=== PATIENT | female | born 1945 | race Caucasian/White ===

== ENCOUNTER 2018-05-12 15:17 | Outpatient (CLI) | payer MEDICARE, BC | END 2018-05-12 15:18 | disposition home or self-care (01) | LOC: BICMAMMO 15:17 | PROVIDERS: ATTEND Internal Medicine Rheumatology | DX: M81.0 Age-related osteoporosis without current pathological fracture (principal); M85.851 Other specified disorders of bone density and structure, right thigh; M85.852 Other specified disorders of bone density and structure, left thigh | CPT/HCPCS: 77080 ==

== ENCOUNTER 2018-11-13 14:34 | Outpatient (CLI) | payer MEDICARE, BC ==
--- NOTE | 2018-11-18 12:23 | MMO ---
BILATERAL DIGITAL SCREENING MAMMOGRAMS: Date: 11/13/18 HISTORY: 73-year-old female presents for digital screening mammogram. COMPARISON: 08/23/17, 04/20/16, 03/03/15. FINDINGS: This patient's mammogram was interpreted with the assistance of computer-aided detection. Scattered fibroglandular changes are noted. Stable typically benign calcifications. No direct or eduin rect evidence of malignancy. IMPRESSION: BIRADS 2: Benign Finding(s) Continue routine screening. POS: JOS[facility]UEL
== END 2018-11-13 14:35 | disposition home or self-care (01) ==
LOC: SCSMAMMO 14:34
PROVIDERS: ATTEND Family Medicine
DX: Z12.31 Encounter for screening mammogram for malignant neoplasm of breast (principal)
CPT/HCPCS: 77067

== ENCOUNTER 2019-02-16 14:05 | Outpatient (CLI) | payer MEDICARE, BC ==
--- NOTE | 2019-02-16 14:37 | RAD ---
AP VIEW ABDOMEN: HISTORY: Renal calculi. FINDINGS: AP view abdomen demonstrates extensive lumbar spine fusion surgical hardware. A small, radiopaque calculus is seen in the midpole of the right kidney. This measures approximately 2-3 mm in diameter. It appears to have been present on the previous comparison exam. No newly developed evidence of renal calculi seen. IMPRESSION: Small midpole right renal calculus. Transcribed Date/Time: 02/16/2019 2:40 PM
== END 2019-02-16 14:06 | disposition home or self-care (01) ==
LOC: RAD 14:05
PROVIDERS: ATTEND Urology
DX: N20.0 Calculus of kidney (principal)
CPT/HCPCS: 74018

== ENCOUNTER 2020-03-31 10:36 | Outpatient (CLI) | payer MEDICARE, BC ==
--- NOTE | 2020-03-31 12:59 | MMO ---
Bilateral MAMMO Bilat Screen [facility]. CLINICAL HISTORY: Patient is 75 years old and is seen for screening. The patient has no family history of breast cancer. The patient has no personal history of cancer. VIEWS: The views performed were: bilateral craniocaudal with tomosynthesis and bilateral mediolateral oblique with tomosynthesis. FILMS COMPARED: The present examination has been compared to prior imaging studies performed at [facility] on 11/13/2018, and at Outside Location on 03/03/2015, 04/20/2016 and 08/23/2017. This study has been interpreted with the assistance of computer-aided detection. MAMMOGRAM FINDINGS: There are scattered fibroglandular densities. There is an asymmetry measuring 5 millimeters seen in the middle upper-outer region of the right breast. In the left breast, there are no suspicious masses, calcifications or areas of architectural distortion. IMPRESSION: ASYMMETRY IN THE RIGHT BREAST REQUIRES ADDITIONAL EVALUATION. ADDITIONAL IMAGING. Diagnostic mammogram and focused ultrasound recommended. THE RESULTS OF THIS EXAM WERE SENT TO THE PATIENT. ACR BI-RADS Category 0 - Incomplete: Need additional imaging evaluation. [facility] will notify the patient of the need for additional imaging services. MAMMOGRAPHY NOTE: 1. A negative mammogram report should not delay a biopsy if a dominant of clinically suspicious mass is present. 2. Approximately 10% to 15% of breast cancers are not detected by mammography. 3. Adenosis and dense breasts may obscure an underlying neoplasm. Reported by: RACHELLE RG MD Electonically Signed: [id number]
== END 2020-03-31 10:37 | disposition home or self-care (01) ==
LOC: BICMAMMO 10:36
PROVIDERS: ATTEND Family Medicine
DX: Z12.31 Encounter for screening mammogram for malignant neoplasm of breast (principal); N64.89 Other specified disorders of breast
CPT/HCPCS: 77063; 77067

== ENCOUNTER 2020-04-05 09:55 | Outpatient (CLI) | payer MEDICARE, BC ==
--- NOTE | 2020-04-05 10:35 | MMO ---
Right Breast MAMMO Unilat Diag [facility]DI [facility]. CLINICAL HISTORY: Patient is 75 years old and is seen for diagnostic exam. The patient has no family history of breast cancer. The patient has no personal history of cancer. VIEWS: The views performed were: right craniocaudal spot compression with tomosynthesis; right mediolateral oblique spot compression with tomosynthesis; and right mediolateral with tomosynthesis. FILMS COMPARED: The present examination has been compared to prior imaging studies performed at [facility] on 11/13/2018, 03/31/2020 and 04/05/2020, and at Outside Location on 08/23/2017. This study has been interpreted with the assistance of computer-aided detection. MAMMOGRAM FINDINGS: There are scattered fibroglandular densities. The asymmetry seen at screening mammography does not persist at additional imaging, compatible with superimposed tissue. There are no suspicious masses, suspicious calcifications, or new areas of architectural distortion. IMPRESSION: THERE IS NO MAMMOGRAPHIC EVIDENCE OF MALIGNANCY. A ROUTINE FOLLOW-UP MAMMOGRAM IN 1 YEAR IS RECOMMENDED. THE RESULTS OF THIS EXAM WERE SENT TO THE PATIENT. ACR BI-RADS Category 2 - Benign finding MAMMOGRAPHY NOTE: 1. A negative mammogram report should not delay a biopsy if a dominant of clinically suspicious mass is present. 2. Approximately 10% to 15% of breast cancers are not detected by mammography. 3. Adenosis and dense breasts may obscure an underlying neoplasm. Reported by: TACO LITTLE MD Electonically Signed: [id number]
== END 2020-04-05 09:56 | disposition home or self-care (01) ==
LOC: BICMAMMO 09:55
PROVIDERS: ATTEND Family Medicine
DX: R92.2 Inconclusive mammogram (principal)
CPT/HCPCS: 77065; G0279

== ENCOUNTER 2020-06-30 13:45 | Outpatient (CLI) | payer MEDICARE, BC ==
--- NOTE | 2020-06-30 14:54 | BD ---
Exam: DEXA Bone Density 06/30/20 HISTORY: Postmenopausal screening for osteoporosis. FINDINGS: Right hip: BMD (g/cm2) T-SCORE Z-SCORE Neck 0.755 -0.8 1.1 Total 0.792 -1.2 0.5 Left hip: Neck 0.673 -1.6 0.4 Total: 0.780 -1.3 0.4 The ten year fracture risk for a major osteoporotic fracture is 9.5% and for hip fracture is 1.8%. IMPRESSION: Osteopenia. POS: OFF
== END 2020-06-30 13:46 | disposition home or self-care (01) ==
LOC: BICMAMMO 13:45
PROVIDERS: ATTEND Family Medicine
DX: M85.851 Other specified disorders of bone density and structure, right thigh (principal); M85.852 Other specified disorders of bone density and structure, left thigh; N95.9 Unspecified menopausal and perimenopausal disorder
CPT/HCPCS: 77080

== ENCOUNTER 2020-07-20 15:21 | Outpatient (CLI) | payer MEDICARE, BC ==
--- NOTE | 2020-07-20 17:42 | RAD ---
RIGHT FOOT THREE VIEWS: 07/20/20 INDICATION: Midfoot pain. COMPARISON: None. FINDINGS: There is scattered IP osteoarthrosis. There is a healing nondisplaced fracture involving the proximal third metatarsal shaft as well as the proximal second metatarsal shaft. There is a nondisplaced frac ture involving the proximal fourth metatarsal shaft. Lisfranc alignment appears preserved. IMPRESSION: 1. Nondisplaced fractures involving the proximal shafts of the second through fourth digit. 2. Scattered osteoarthrosis of the right foot. POS: [facility]
== END 2020-07-20 15:22 | disposition home or self-care (01) ==
LOC: BICRAD 15:21
PROVIDERS: ATTEND Family Medicine
DX: M79.671 Pain in right foot (principal); S92.414A Nondisplaced fracture of proximal phalanx of right great toe, initial encounter for closed fracture; M19.071 Primary osteoarthritis, right ankle and foot

== ENCOUNTER 2021-04-27 14:16 | Outpatient (CLI) | payer MEDICARE, BC | END 2021-04-27 14:17 | disposition home or self-care (01) | LOC: BICMAMMO 14:16 | PROVIDERS: ATTEND Family Medicine | DX: Z12.31 Encounter for screening mammogram for malignant neoplasm of breast (principal) | CPT/HCPCS: 77063; 77067 ==

== ENCOUNTER 2022-04-30 11:54 | Outpatient (CLI) | payer MEDICARE, BC | END 2022-04-30 11:55 | disposition home or self-care (01) | LOC: BICMAMMO 11:54 | PROVIDERS: ATTEND Internal Medicine | DX: Z12.31 Encounter for screening mammogram for malignant neoplasm of breast (principal) | CPT/HCPCS: 77063; 77067 ==

== ENCOUNTER 2022-09-20 15:29 | Outpatient (CLI) | payer MEDICARE, BC | END 2022-09-20 15:30 | disposition home or self-care (01) | LOC: BICMAMMO 15:29 | PROVIDERS: ATTEND Internal Medicine | DX: Z13.820 Encounter for screening for osteoporosis (principal); M85.851 Other specified disorders of bone density and structure, right thigh; M85.852 Other specified disorders of bone density and structure, left thigh; Z78.0 Asymptomatic menopausal state | CPT/HCPCS: 77080 ==

== ENCOUNTER 2023-05-30 12:51 | Outpatient (CLI) | payer MEDICARE, BC | END 2023-05-30 12:52 | disposition home or self-care (01) | LOC: SCSRAD 12:51 | PROVIDERS: ATTEND Physician Assistant | DX: S99.921A Unspecified injury of right foot, initial encounter (principal); S62.600A Fracture of unspecified phalanx of right index finger, initial encounter for closed fracture ==